=== PATIENT | female | born 1955 | race Caucasian/White ===

== ENCOUNTER 2023-09-21 00:51 | Emergency (ER) | payer SELFPAY ==
[2023-09-21 00:59] VITALS: BP 127/57; PULSE 70; RESP 18; TEMP 36.9; O2SAT 97; BMI 28.4
== END 2023-09-21 06:08 | disposition left against medical advice (07) ==
PROVIDERS: Emergency Provider Emergency Medicine
DX: R51.9 Headache, unspecified (principal); M25.552 Pain in left hip; Z91.81 History of falling; Z53.21 Procedure and treatment not carried out due to patient leaving prior to being seen by health care provider
CPT/HCPCS: 99281